=== PATIENT | female | born 1960 | race Caucasian/White ===

== ENCOUNTER 2019-04-18 10:28 | Outpatient (REF) | payer BC, SELFPAY ==
[2019-04-18 12:34] LABS: HCT 41.7 % (36.0-46.0); HGB 14.6 g/dL (12.0-15.5); Mean Corpuscular Hemoglobin 28.7 pg (27.0-33.0); Mean Corpuscular Volume 82.1 fL (80-95); Mean Platelet Volume 10.9 fL (8.0-11.0); Platelet Count 148 x1000/uL (130-400); RBC 5.08 m/cumm (4.00-5.20); RBC Distribution Width 13.2 % (11.7-14.6); White Blood Cell Count 6.41 k/cumm (4.4-10.8)
[2019-04-18 13:14] LABS: Anion Gap 9.9 mmol/L (3-11); BUN 15 mg/dL (7-18); CO2 25.1 mmol/L (21.0-32.0); CREATININE 0.83 mg/dL (0.55-1.02); Calcium 8.9 mg/dL (8.5-10.1); Calculated LDL 128 mg/dL; Chloride 104 mmol/L (98-107); Cholesterol 188 mg/dL (50-200); Glucose 113 mg/dL (70-100); HDL Cholesterol 33 mg/dL (40-60); Potassium 4.8 mmol/L (3.5-5.1); Sodium 139 mmol/L (136-145); TSH (W/Ref FT4) 1.58 uIU/mL (0.36-3.74); Triglyceride 138 mg/dL (30-150)
== END 2019-04-18 10:48 ==
LOC: NCHCN 10:28
PROVIDERS: PCP Family Medicine; Visit Provider Family Medicine
DX: E78.5 Hyperlipidemia, unspecified (principal); F41.1 Generalized anxiety disorder; N95.9 Unspecified menopausal and perimenopausal disorder
CPT/HCPCS: 80048; 80061; 83721; 85027; 84443

== ENCOUNTER 2021-03-06 16:00 | Outpatient (REF) | payer BC, SELFPAY ==
[2021-03-08 13:28] LABS: COVID-19 RT-PCR UVMMC Result Negative (Negative)
== END 2021-03-06 16:01 | disposition home or self-care (01) ==
LOC: NCHCN 16:00
PROVIDERS: PCP Family Medicine; Visit Provider Family Medicine
DX: Z20.822 Contact with and (suspected) exposure to COVID-19 (principal); R06.2 Wheezing
CPT/HCPCS: U0003

== ENCOUNTER 2022-05-13 12:19 | Outpatient (REF) | payer BC, SELFPAY ==
--- NOTE | 2022-05-13 10:20 | PAPFT_PTH ---
PATIENT: Della Flannery LOC: [facility]#:[id number] AGE/SX: 61/F ROOM: RE05/13/[address]: Gris Carroll : 1960 BED: DIS: 05/13/2022 SPEC #: [id number] RECD: 05/13/22 17:54 STATUS: LISET REQ #: [id number] ALIX: 05/13/22 10:[address]: Gris Carroll DEPT: [facility] Cytology RECD BY: Nancie Carpenter Tissues: 1 - CX/ENDOCX FOR PAP SMEARS Procedures: PAP THIN PREP/[facility] Screening HPV DNA PROBE Comments: [id number]
== END 2022-05-13 12:20 | disposition home or self-care (01) ==
LOC: NCHCN 12:19
PROVIDERS: PCP Family Medicine; Visit Provider Family Medicine
DX: Z12.4 Encounter for screening for malignant neoplasm of cervix (principal); Z11.51 Encounter for screening for human papillomavirus (HPV)
CPT/HCPCS: 88142; 87624

== ENCOUNTER 2023-04-08 15:38 | Outpatient (REF) | payer BC, SELFPAY ==
[2023-04-08 19:29] LABS: Anion Gap 8.4 mmol/L (3-11); BUN 19 mg/dL (7-18); CO2 28.6 mmol/L (21.0-32.0); CREATININE 1.2 mg/dL (0.55-1.02); Calcium 9.3 mg/dL (8.5-10.1); Calculated LDL 117 mg/dL (<100); Chloride 105 mmol/L (98-107); Cholesterol 210 mg/dL (<200); Estimated GFR 50.55 (mL/min/1.73m2); Glucose 115 mg/dL (74-106); HDL Cholesterol 33 mg/dL (40-60); Potassium 4.7 mmol/L (3.5-5.1); Sodium 142 mmol/L (136-145); Triglyceride 301 mg/dL (<150)
== END 2023-04-08 15:39 | disposition home or self-care (01) ==
LOC: NCHCN 15:38
PROVIDERS: PCP Family Medicine; Visit Provider Family Medicine
DX: I10 Essential (primary) hypertension (principal)
CPT/HCPCS: 80048; 80061

== ENCOUNTER 2024-01-16 20:14 | Outpatient (REF) | payer BC, SELFPAY ==
[2024-01-16 20:43] LABS: HCT 38.9 % (36.0-46.0); HGB 12.8 g/dL (11.2-15.7); MCH 27.2 pg (27.0-33.0); MCHC 32.9 % (32.0-36.0); MCV 83 fL (80-95); MPV 9.8 fL (8.0-11.0); Platelet Count 327 10^3/uL (130-400); RBC 4.71 10^6/uL (3.93-5.22); RDW 12.8 % (11.7-14.6); RDW-SD 38.5 fL; WBC 9.07 10^3/uL (4.4-10.8)
[2024-01-16 20:49] LABS: ALT 32 U/L (14-59); AST 17 U/L (15-37); Albumin 3.5 g/dL (3.4-5.0); Alkaline Phosphatase 105 U/L (46-116); Anion Gap 11.4 mmol/L (3-11); BUN 15 mg/dL (7-18); Bilirubin, Total 0.2 mg/dL (0.2-1.0); CO2 24.6 mmol/L (21.0-32.0); CREATININE 0.9 mg/dL (0.55-1.02); Calcium 8.8 mg/dL (8.5-10.1); Chloride 104 mmol/L (98-107); Estimated GFR 70.95 (mL/min/1.73m2); Glucose 72 mg/dL (74-106); Potassium 4.4 mmol/L (3.5-5.1); Sodium 140 mmol/L (136-145); Total Protein 7.2 g/dL (6.4-8.2)
== END 2024-01-16 20:15 | disposition home or self-care (01) ==
LOC: NCHCN 20:14
PROVIDERS: PCP Family Medicine; Visit Provider Family Medicine
DX: I10 Essential (primary) hypertension (principal)
CPT/HCPCS: 80053; 85027

== ENCOUNTER 2025-08-14 10:02 | Outpatient (REF) | payer BC, SELFPAY ==
[2025-08-14 18:15] LABS: Abs Immature Grans 0.07 10^3/uL (0.0-0.06); HCT 40.7 % (36.0-46.0); HGB 13.5 g/dL (11.2-15.7); Immature Grans % 0.4 %; MCH 27.1 pg (27.0-33.0); MCHC 33.2 % (32.0-36.0); MCV 82 fL (80-95); MPV 10.9 fL (8.0-11.0); Platelet Count 273 10^3/uL (130-400); RBC 4.99 10^6/uL (3.93-5.22); RDW 13.2 % (11.7-14.6); RDW-SD 38.8 fL; WBC 17.32 10^3/uL (4.4-10.8)
[2025-08-16 10:45] LABS: Syphilis Serology (RPR) Negative (Negative)
== END 2025-08-14 10:03 | disposition home or self-care (01) ==
LOC: NCHCN 10:02
PROVIDERS: PCP Family Medicine; Visit Provider Family Medicine
DX: R59.0 Localized enlarged lymph nodes (principal)
CPT/HCPCS: 85025; 86592